=== PATIENT | male | born 1970 | race Caucasian/White ===

== ENCOUNTER 2016-09-30 13:20 | Emergency (ER) | payer BC ==
--- NOTE | ~2016-09-30 | CR63 ---
[facility] A Service of [facility] RADIOLOGY TEXT RESULTS PATIENT: KADY AKERS LOCATION: [place] : 70 UNIT #: [id number] AGE: [address]: Davina Johns APRN SEX: M ORDER DR: [id number] [facility] [place], [place] [address] [id number] E MR#: [id number] Acc #: [id number] NAME: KADY AKERS : 1970 SEX: M STUDY DATE/TIME: 09/30/2016 UNIT: [facility] ROOM: STUDY DESCRIPTION: CR Chest 2 View Attending Physician: Davina Johns A.P.R.N. Ordering Physician: Ed Sergio Dhillon M.D. Primary Care Physician: Andrew Becerra M.D. MEDICAL IMAGING REPORT This report is preliminary unless electronic signature is present EXAM Chest, 2 views. DATE OF EXAM 09/30/2016, 1245 hours. CLINICAL HISTORY 46-year-old man with complaint of sore throat, fever and congestion for 2 days, possible pneumonia. History of hypertension. COMPARISON 04/09/2013 FINDINGS Upright PA and lateral views of the chest demonstrate normal cardiac, mediastinal and hilar contours. The lungs are well expanded and clear. There are no pleural effusions. No pneumothorax. IMPRESSION Mild hyperinflation with clear lungs. No acute cardiopulmonary findings. Dictated by... Adeline Gonzalez M.D. THIS IS AN ELECTRONICALLY VERIFIED REPORT Adeline Gonzalez M.D. at 09/30/2016 6:17 PM LIBAN/kali TD: 09/30/2016 16:40 JOB #: [id number] MEDICAL IMAGING REPORT [facility] A Service [facility] RADIOLOGY TEXT RESULTS PATIENT: KADY AKERS LOCATION: [place] : 70 UNIT #: [id number] AGE: [address]: Davina Johns APRN SEX: M ORDER DR: COPY
[2016-09-30 12:57] LABS: INFLUENZA A NEG (NEG)
[2016-09-30 12:58] LABS: INFLUENZA B POS (NEG)
[~2016-09-30 13:20] MED LIST: ACETAMINOPHEN650 M1 PO; ANEXSIA 5/325 M1 TA1 PO; CATAPRES-TTS-20.2 MG PO; FLEXERIL10 MG PO; INDOMETHACIN25 MG PO; IRON1 TA1 PO; LEVAQUIN750 MG PO; LITHIUM CARBON600 MG PO; LORTAB 10-5001 EACH PO; NORVASC PO; PHENERGAN25 MG PO; PREDNISONE PO; PRILOSEC40 MG PO; SEROQUEL300 MG PO; SEROQUEL400 MG PO; SIMVASTATIN10 MG PO; SKELAXIN PO; SYMBICORT INH; TOPROL XL PO; XANAX0.5 MG PO; ZOCOR20 MG PO; ZOLOFT PO
== END 2016-09-30 14:39 | disposition home or self-care (01) ==
LOC: CFTX 13:20
DX: J10.1 Influenza due to other identified influenza virus with other respiratory manifestations (principal); F31.9 Bipolar disorder, unspecified; I25.2 Old myocardial infarction; F17.210 Nicotine dependence, cigarettes, uncomplicated; Z98.890 Other specified postprocedural states; Z88.8 Allergy status to other drugs, medicaments and biological substances; Z79.899 Other long term (current) drug therapy
CPT/HCPCS: 36415; 71020; 87651; 87804; 96360; 99284

== ENCOUNTER → 2016-10-31 | Outpatient (CLI) | payer BC ==
--- NOTE | ~2016-10-31 | CR61 ---
[facility] A Service of [facility] RADIOLOGY TEXT RESULTS PATIENT: KADY AKERS LOCATION: [facility] : 70 UNIT #: [id number] AGE: [address]: SUJEY CAPONE SEX: M ORDER DR: [id number] [address] [address] [id number] O MR#: [id number] Acc #: [id number] NAME: KADY AKERS : 1970 SEX: M STUDY DATE/TIME: 10/31/2016 10:43 UNIT: [facility] ROOM: STUDY DESCRIPTION: CR Cervical Spine Min 5 Views Attending Physician: Sujey Capone Aprn Referring Physician: Sujey Capone Aprn Ordering Physician: Cl De La Cruz M.D. Primary Care Physician: Primary Care Physician No MEDICAL IMAGING REPORT This report is preliminary unless electronic signature is present EXAM Cervical spine series 5 views 10/31/2016 COMPARISON Prior cervical spine series 04/27/2010 HISTORY Neck pain for about 6 months. FINDINGS There has been anterior fusion from C5 through C7. Lateral flexion/extension views show no abnormal motion, but an overall very limited range of motion. There is no prevertebral swelling or fracture or evidence of device loosening or failure or malposition or other acute appearing abnormality. IMPRESSION Status post anterior cervical fusion. No convincing acute abnormality. Dictated by... Siva Clark M.D. THIS IS AN ELECTRONICALLY VERIFIED REPORT Siva Clark M.D. at 11/01/2016 3:56 PM TEV/to TD: 10/31/2016 13:13 JOB #: [id number] MEDICAL IMAGING REPORT [facility] A Service of [facility] RADIOLOGY TEXT RESULTS PATIENT: KADY AKERS LOCATION: [facility] : 70 UNIT #: [id number] AGE: [address]: SUJEY CAPONE SEX: M ORDER DR: Page 1 of 1 COPY
== END | disposition home or self-care (01) ==
LOC: CRAD 10:02
DX: M54.2 Cervicalgia (principal); Z98.1 Arthrodesis status
CPT/HCPCS: 72050

== ENCOUNTER 2017-01-08 20:39 | Emergency (ER) | payer BC ==
--- NOTE | ~2017-01-08 | CR113 ---
[facility] A Service of [facility] RADIOLOGY TEXT RESULTS PATIENT: KADY AKERS LOCATION: [facility] : 70 UNIT #: [id number] AGE: [address]: Evelin Delgdao APRN SEX: M ORDER DR: [id number] [facility] [address] [facility]. [place], [place] [address] [id number] E MR#: [id number] Acc #: [id number] NAME: KADY AKERS : 1970 SEX: M STUDY DATE/TIME: 01/08/2017 22:04 UNIT: [facility] ROOM: STUDY DESCRIPTION: CR Finger 2 View [address] R[address] Attending Physician: Evelin Delgado A.P.R.N. Ordering Physician: Evelin Delgado A.P.R.N. Primary Care Physician: Paras Joseph M.D. 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 COMPARISON None. FINDINGS 3 views of the right fourth finger demonstrate no radiopaque foreign body. No acute bony abnormality. IMPRESSION Unremarkable right fourth finger. No radiopaque foreign body or acute bony abnormality. Dictated by... Gee Andrade M.D. THIS IS AN ELECTRONICALLY VERIFIED REPORT Gee Andrade M.D. at 01/09/2017 10:27 AM Danilo TD: 01/08/2017 22:59 JOB #: [id number] MEDICAL IMAGING REPORT Page 1 of 1 COPY
== END 2017-01-08 22:50 | disposition home or self-care (01) ==
LOC: CFTX 20:39 → CED 20:39 → CFTX 21:20
DX: S61.214A Laceration without foreign body of right ring finger without damage to nail, initial encounter (principal); W23.0XXA Caught, crushed, jammed, or pinched between moving objects, initial encounter; Y92.009 Unspecified place in unspecified non-institutional (private) residence as the place of occurrence of the external cause; F41.9 Anxiety disorder, unspecified; F32.9 Major depressive disorder, single episode, unspecified; I10 Essential (primary) hypertension; Z88.8 Allergy status to other drugs, medicaments and biological substances
CPT/HCPCS: 12001; 73140; 99283

== ENCOUNTER 2017-03-14 13:51 | Emergency (ER) | payer BC ==
[~2017-03-14] VITALS: Ht 175.3 cm; Wt 68.0 kg
[2017-03-14 16:04] LABS: EOSINOPHIL# 0.1 X10e3 (0-0.7); HEMATOCRIT 40.7 % (38.0-50.0); HEMOGLOBIN 14.3 gm/dL (13.0-16.0); LYMPHOCYTE# 0.5 X10e3 (1.0-3.5); MEAN CELL VOLUME 96.1 FL (83-96); MEAN CORPUSCULAR HEMOGLOBIN 33.8 PG (28-34); MEAN CORPUSCULAR HGB CONC 35.1 g/dL (30-36); MEAN PLATELET VOLUME 7.3 FL (6.5-11.5); MONOCYTE# 0.6 X10e3 (0-1.0); NEUTROPHIL# 1.9 X10e3 (1.5-7.1); RED BLOOD COUNT 4.23 X10e (3.90-5.60); RED CELL DISTRIBUTION WIDTH 14.9 % (11.0-15.5); WHITE BLOOD COUNT 3.2 X10e3 (4.0-10.5)
[2017-03-14 16:14] LABS: POC - CKMB 1.1 ng/mL (0.0-7.9); POC - TROPONIN <0.05 ng/mL (<=0.05)
[2017-03-14 16:20] LABS: ALBUMIN SERUM 4.4 g/dL (3.5-5.0); BILIRUBIN, DIRECT 0.1 mg/dL (0.0-0.2); BILIRUBIN,INDIRECT 0.7 mg/dL (0.0-0.9); BILIRUBIN,TOTAL 0.8 mg/dL (0.2-2.0); BUN/CREATININE RATIO 13.33; CALCIUM SERUM 9.4 mg/dL (8.4-10.2); CREATININE SERUM 0.9 mg/dL (0.6-1.4); GLOM FILT RATE Estimated 102.1 mL/min (>60); POTASSIUM 4.7 mmol/L (3.5-5.1); PROTEIN TOTAL SERUM 7.7 g/dL (6.0-8.3)
[2017-03-14 16:45] LABS: DIFF IND NO; PLATELET COUNT 114 X10e3 (140-420)
[2017-03-14 16:55] LABS: URINE SOURCE CLEAN CATCH
[2017-03-14 17:01] LABS: URINE APPEARANCE CLEAR; URINE BILIRUBIN NEG (NEG); URINE BLOOD NEG (NEG); URINE COLOR YELLOW; URINE GLUCOSE NEG (NEG); URINE KETONE NEG (NEG); URINE LEUKOCYTE ESTERASE NEG (NEG); URINE NITRATE NEG (NEG); URINE PROTEIN NEG (NEG); URINE SPECIFIC GRAVITY 1.018 (1.003-1.035)
[2017-03-14 17:10] LABS: CULTURE INDICATED? NO
== END 2017-03-14 18:11 | disposition home or self-care (01) ==
LOC: CED 13:51
PROVIDERS: Student in an Organized Health Care Education/Training Program
DX: R11.2 Nausea with vomiting, unspecified (principal); R19.7 Diarrhea, unspecified; I10 Essential (primary) hypertension; F31.9 Bipolar disorder, unspecified; F17.210 Nicotine dependence, cigarettes, uncomplicated; Z91.048 Other nonmedicinal substance allergy status
CPT/HCPCS: 36415; 80048; 80076; 81003; 82150; 82553; 83690; 84484; 85025; 96361; 96374; 96375; 99284; J2405